=== PATIENT | male | born 1965 | race Hispanic/Latino ===

== ENCOUNTER → 2017-08-24 | Outpatient (CLI) | payer BC ==
--- NOTE | 2017-08-24 10:04 | Diagnostic Imaging Report ---
Examination: MRI SPINE LUMBAR WITHOUT CONTRAST History: 51-year-old male with low back pain radiating down the left lower extremity. Comparison studies: None Technique: Sagittal, coronal and axial T2 , sagittal T1 and STIR; axial spin density oblique. Findings: Number of lumbar vertebral bodies: Five. Alignment: Normal lordosis. No scoliosis. Soft tissues: No T2 hyperintense inflammatory changes. Posterior paraspinal soft tissues and muscles: No abnormality. Lower thoracic cord: Normal in signal and morphology. The tip of the conus is at T12-L1. Cauda equina: No masses. No arachnoiditis. Vertebrae: No fractures, infection or neoplasm. Degenerative changes: L1-L2: No abnormalities. L2-L3: No abnormalities. L3-L4: Mild diffuse disc bulge. No foraminal or canal stenosis. Moderate bilateral facet joint effusions. L4-L5: Mild diffuse disc bulge. No foraminal or canal stenosis. L5-S1: No abnormalities. IMPRESSION: 1. Mild degenerative changes at L3-L4 and L4-L5. 2. No canal or foraminal stenosis. 3. Moderate bilateral facet joint effusions at L3-L4. Signed by: Dr. Emily Medina M.D. on 08/24/2017 10:00 AM
== END ==
LOC: MRI 08:16
PROVIDERS: ATTEND Internal Medicine
DX: M54.16 Radiculopathy, lumbar region (principal)
CPT/HCPCS: 72148